=== PATIENT | male | born 1970 | race Caucasian/White ===

== ENCOUNTER 2023-12-23 06:17 | Day surgery (SDC) | payer OTHER ==
[2023-12-23] MEDS ORDERED: Propofol 200 MG/20 ML SDV ONE (06:58)
[2023-12-23] MEDS ORDERED: Rocuronium 50 MG/5 ML Vial ONE (06:58)
[2023-12-23] MEDS ORDERED: Dexamethasone 4 MG/ML SDV ONE (06:58)
[2023-12-23] MEDS ORDERED: Neostigmine Methylsulfate 10 MG/10 ML MDV ONE (06:58)
[2023-12-23] MEDS ORDERED: Glycopyrrolate 0.2 MG/ML 5 ML MDV ONE (06:58)
[2023-12-23] MEDS ORDERED: Ondansetron 4 MG/2 ML SDV ONE (06:58)
[2023-12-23] MEDS ORDERED: fentaNYL 250 MCG/5 ML SDV ONE ×2 (07:00→08:06)
[2023-12-23] MEDS: Sodium Chloride 0.9% 1,000 ML IV SCH (07:01)
[2023-12-23] MEDS: metroNIDAZOLE/Normal Saline 500 MG in Premix Bag 1 BAG IV ONE (07:22)
[2023-12-23 07:54] LABS: HEMATOCRIT 39.6 % (38.4-49.7); HEMOGLOBIN 14.1 g/dL (12.9-16.9); MEAN CORPUSCULAR HEMOGLOBIN 32.6 pg (31.6-35.5); MEAN CORPUSCULAR HGB CONC 35.6 g/dL (31.6-35.5); MEAN CORPUSCULAR VOLUME 91.7 fL (81.4-99.0); RED BLOOD CELL COUNT 4.32 M/uL (4.14-5.76); WHITE BLOOD CELL COUNT,WBC 6.8 K/uL (3.2-11.0)
[2023-12-23 08:15] LABS: A/G RATIO 1.2 (1.2-2.2); ALANINE AMINOTRANSFERASE,ALT 24 U/L (12-78); ALBUMIN 3.6 g/dL (3.4-5.0); ALKALINE PHOSPHATASE 72 U/L (46-116); ANION GAP 8.6 mmol/L (5.0-14.0); ASPARTATE AMNIOTRANSFERASE,AST 14 U/L (15-37); BILIRUBIN TOTAL 0.5 mg/dL (0.2-1.0); BLOOD UREA NITROGEN,BUN 24 mg/dL (7-18); CALCIUM 8.5 mg/dL (8.5-10.1); CARBON DIOXIDE,CO2 26 mmol/L (21-32); CHLORIDE,CL 106 mmol/L (100-108); CREATININE 0.9 mg/dL (0.8-1.3); EST CRCL DRUG DOSING (CG) 93.83 mL/min; ESTIMATED GFR 101 mL/min (>60); GLUCOSE RANDOM 94 mg/dL (74-106); PROTEIN TOTAL,TP 6.6 g/dL (6.4-8.2); SODIUM,NA 141 mmol/L (140-148)
[2023-12-23] MEDS: ceFAZolin 2 GM in Premix Bag 1 BAG IV ONE (08:17)
[2023-12-23] MEDS ORDERED: Atropine 0.4 MG/ML SDV ONE (08:23)
[2023-12-23] MEDS: Ropivacaine 35 ML, dexAMETHasone 8 MG, EPINEPHrine 0.4 MG, Sodium Chloride 0.9% 42.6 ML NERVRT SCH (08:30)
[2023-12-23] MEDS: Bupivacaine 0.5%/EPINEPHrine 1:200,000 50 ML MDV ONE (08:35)
[2023-12-23] MEDS ORDERED: Lactated Ringers 1,000 ML ONE (09:04)
[2023-12-23] MEDS ORDERED: Ketorolac 30 MG/ML SDV ONE (09:40)
[2023-12-23] MEDS ORDERED: Ibuprofen 600 MG Tab PO ONE (10:25)
[2023-12-23] MEDS: Acetaminophen 325 MG Tab PO ONE (10:41)
== END 2023-12-23 14:05 | disposition home or self-care (01) ==
LOC: JP.SDS 06:17
PROVIDERS: ATTEND Surgery
DX: K40.90 Unilateral inguinal hernia, without obstruction or gangrene, not specified as recurrent (principal); I10 Essential (primary) hypertension; E78.2 Mixed hyperlipidemia; Z79.899 Other long term (current) drug therapy; Z88.0 Allergy status to penicillin
CPT/HCPCS: 00830-QZ; 36415; 80053; 85027; A9270-GY; C1781; J0171; J0461; J0690; J1100; J1596; J1836; J1885; J2405; J2704; J2710; J2795; J3010; J3490; J7030; J7120

== ENCOUNTER 2024-03-12 06:30 | Day surgery (SDC) | payer OTHER ==
[2024-03-12] MEDS: Lactated Ringers 1,000 ML IV SCH (07:01)
[2024-03-12] MEDS ORDERED: fentaNYL 50 MCG/ML SDV ONE (07:06)
[2024-03-12] MEDS ORDERED: Propofol 200 MG/20 ML SDV ONE ×2 (07:06→07:34)
[2024-03-12] MEDS ORDERED: Midazolam 1 MG/ML 2 ML SDV ONE (07:06)
== END 2024-03-12 09:00 | disposition home or self-care (01) ==
LOC: JP.SDS 06:30
PROVIDERS: ATTEND Family Medicine
DX: Z12.11 Encounter for screening for malignant neoplasm of colon (principal); D12.5 Benign neoplasm of sigmoid colon; K57.30 Diverticulosis of large intestine without perforation or abscess without bleeding; K64.8 Other hemorrhoids; Z88.0 Allergy status to penicillin; Z86.0100 Personal history of colon polyps, unspecified
CPT/HCPCS: 00811-QZ; 45380; J2250; J2704; J3010; J7120